=== PATIENT | female | born 1945 | race Caucasian/White ===

== ENCOUNTER 2021-09-15 11:47 | Inpatient (IN) | payer OTHER ==
[~2021-09-15] VITALS: Ht 152.4 cm; Wt 39.5 kg
--- NOTE | ~2021-09-15 | EMS ---
[place] [address] EMS Patient Care Report Name: ANKITA FERMIN Room #: PRE M.R.#: [id number] Admission: Attend Phys: Discharge: Date of : 45 Report #: [id number] THIS REPORT FOR: //name// Report Transmitted: 09/15/2021 11:59 EMS Care Summary [place], [place]/[facility] Incident [id number] @ 09/15/2021 11:08 Incident Location [facility] [address] [place] [address] Patient ANKITA ESCOBAR Female, 76 Years 1945 Patient Address [address] [place] [address] Patient History Arthritis, Patient Allergies No known allergies, Patient Medications Tylenol, Chief Complaint UNABLE TO GET UP OR WALK ON HER OWN Disposition Transported No Lights/[place] Dispatch Reason Sick Person Transported To [facility] Narrative UPON ARRIVAL PT SUPINE ON COUCH CONSCIOUS AND ALERT. ABOUT 5-6 DAYS AGO PT HAD A FALL IN THE BATHROOM AND HAS BEEN UNABLE TO GET OUT OF BED OR WALK AROUND. PT NORMALLY ABLE TO GET UP ON HER OWN AND WALK WITH A CANE. PT HAS SEVERE ARTHRITIS IN HER BACK AND STATES IT DOESN'T HURT ANY MORE THAN NORMAL. PT HAS [address] [address] EMS Patient Care Report Name: ANKITA FERMIN Room #: PRE Lorena#: [id number] Admission: Attend Phys: Discharge: Date of : 45 Report #: [id number] ALSO NOT BE EATING/ DRINKING MUCH DUE TO ACID REFLUX AND INABILITY TO CARE FOR HERSELF. PT DENIES ANY SOB, SPO2 88% PT ALSO TACHYCARDIC. UNABLE TO GET A CARDIAC READING ON THE MONITOR. PT LIFTED TO COT. PT TRANSPORTED TO [facility]. Initial Vitals @11:31P: 146,CO: 1,SpO2: 82, @11:27P: 150,CO: 0,SpO2: 88, @11:40P: 147,R: 16,BP: 102/71,GCS: 15,CO: 4,SpO2: 96,Revised Trauma: 12, @11:23P: 153,R: 16,BP: 106/75,Pain: 5/10,GCS: 15,Glucose: 107,SpO2: 88,Revised Trauma: 12, Assessments @11:15MENTAL:Person Oriented,Event Oriented,Time Oriented,Place Oriented,SKIN:HEENT:Head/Face: No Abnormalities,LUNG SOUNDS:General: No Abnormalities,ABDOMEN:General: No Abnormalities,PELVIS//GI:No Abnormalities,EXTREMITIES:Left Arm: No Abnormalities,Right Arm: No Abnormalities,Left Leg: No Abnormalities,Right Leg: No Abnormalities,PULSE:Radial: 2+ Normal,NEURO:No Abnormalities, Impression Back Pain Procedures @11:30 Oxygen FlowRate: 2 Device: Nasal Cannula (NC) Response: ImprovedSucceeded @11:25 3-Lead ECG Response: UnchangedFailed @11:15 ALS Assessment Response: UnchangedSucceeded Timeline 10:57,Call Received 10:57,Dispatch Notified 11:08,Dispatched 11:09,En Route 11:13,On Scene 11:14,At Patient 11:15,ALS Assessment,Response: UnchangedSucceeded, 11:23,BP: 106/75 M,PULSE: 153,RR: 16 R,SPO2: 88 Ox,ETCO2: ,B,PAIN: 5,GCS: 15, 11:25,3-Lead ECG,Response: UnchangedFailed, 11:27,BP: / M,PULSE: 150,RR: R,SPO2: 88 Ox,ETCO2: ,BG: ,PAIN: ,GCS: , 11:27,Depart Scene 11:30,Oxygen FlowRate: 2 Device: Nasal Cannula (NC) Response: ImprovedSucceeded, 11:31,BP: / M,PULSE: 146,RR: R,SPO2: 82 Ox,ETCO2: ,BG: ,PAIN: ,GCS: , 11:40,BP: 102/71 M,PULSE: 147,RR: 16 R,SPO2: 96 Ox,ETCO2: ,BG: ,PAIN: ,GCS: 15, 11:43,At Destination [facility] [address] [place] [address] EMS Patient Care Report Name: ANKITA FERMIN Room #: PRE M.R.#: [id number] Admission: Attend Phys: Discharge: Date of : 45 Report #: [id number] 12:05,Call Closed Disclaimer [email or web address] Copyright 2021 [employer] This EMS Care Summary contains data elements from the applicable legal record (which may be displayed differently). It is designed to provide pertinent information for the following purposes: continuity of care, clinical quality, and state data reporting. The complete legal record is available to ED staff and administrators of the receiving hospital in [email or web address] Patient Tracker. All data is provided "as is."
[2021-09-15 11:49] VITALS: BP 126/83
[2021-09-15 12:56] LABS: ABSOLUTE NEUTROPHILS 3.2 thou/uL (1.4-8.2); BASOPHILS 0.2 % (0.0-2.0); EOSINOPHILS 0.1 % (0.0-3.0); HEMATOCRIT 40.3 % (37.0-47.0); HEMOGLOBIN 12.7 gm/dL (12.0-15.0); LYMPHOCYTES 20.2 % (24.0-44.0); MCH 32.5 pg (26.0-34.0); MCHC 31.6 g/dL (28.0-37.0); MCV 102.9 fL (80.0-100.0); MONOCYTES 2.1 % (1.0-8.0); PLATELET COUNT 218 thou/uL (150-400); POLYS 77.4 % (36.0-66.0); RBC 3.92 mil/uL (4.20-5.00); RDW 15.1 % (10.5-14.5); WBC 4.9 thou/uL (4.0-11.0)
[2021-09-15 12:57] LABS: URINE BLOOD NEGATIVE (Negative); URINE CLARITY CLEAR; URINE GLUCOSE-RANDOM* NEGATIVE (Negative); URINE KETONES NEGATIVE (Negative); URINE LEUKOCYTES-REFLEX NEGATIVE (Negative); URINE NITRITE-REFLEX NEGATIVE (Negative); URINE PROTEIN (DIPSTICK) TRACE (Negative); URINE SPECIFIC GRAVITY >= 1.030 (1.005-1.035); URINE UROBILINOGEN 0.2 E.U./dl (0.2-1.0)
[2021-09-15 12:59] LABS: ICTOTEST (BILI CONFIRMATORY) Negative (Negative); URINE BILIRUBIN NEGATIVE (Negative); URINE COLOR YELLOW
[2021-09-15 13:18] LABS: CREATININE 1.3 mg/dL (0.6-1.0); TOTAL BILIRUBIN 0.6 mg/dL (0.2-1.0); TOTAL PROTEIN 7.8 g/dL (6.4-8.2)
[2021-09-15 13:22] LABS: POTASSIUM 5.5 mmol/L (3.5-5.1)
[2021-09-15 13:23] LABS: CALCIUM 12.5 mg/dL (8.5-10.1)
--- NOTE | 2021-09-15 16:30 | NUR ---
Pt admitted to the ER from home with hypercalcemia and falls. Workup in progress for likely new ca dx with metastatic disease. Consult rec'd to talk with her son/dpoa Roberto who lives in [place] regarding possible options for home with hospice care. [employer] Instructor spoke with Roberto. He is working on trying to get to [place] early next week and also see if his aunt can come up from [facility] to stay with the pt. Hospice options /medicare hospice benefits discussed. Agency preference denied. Referral faxed and called to [facility]. Their liason will be in touch with pt's son and able to come visit with the pt tomorrow at bedside to see if they wish to move forward with setting up hospice services at home. The hospice liason is Radha and she can be reached via cell [phone].
--- NOTE | 2021-09-15 17:16 | NUR ---
THIS RN HAS SPOKE WITH PTS SON REGARDING PLANS FOR PT AND POSSIBLE HOSPICE REFERRAL. PT SON NAME IS CHRISTA, WHO LIVES IN [facility], REPORTS THAT HIS MOTHER HAS BEEN HAVING MANY FALLS RECENTLY. SON HAS BEEN INFORMED OF PT CT SCAN RESULTS WITH PT PERMISSION. ADMITTING PHYSICIAN PAGED TO DISCUSS RESULTS WITH PT IT IS UNCLEAR IF PT UNDERSTANDS THE RESULTS.
[2021-09-16 03:11] VITALS: BP 110/77
[2021-09-16 05:01] LABS: ABSOLUTE NEUTROPHILS 4.9 thou/uL (1.4-8.2); BASOPHILS 0.1 % (0.0-2.0); EOSINOPHILS 0.1 % (0.0-3.0); HEMATOCRIT 32.5 % (37.0-47.0); HEMOGLOBIN 10.2 gm/dL (12.0-15.0); LYMPHOCYTES 12.9 % (24.0-44.0); MCH 32.5 pg (26.0-34.0); MCHC 31.5 g/dL (28.0-37.0); MCV 103.2 fL (80.0-100.0); MONOCYTES 1.4 % (1.0-8.0); PLATELET COUNT 151 thou/uL (150-400); POLYS 85.5 % (36.0-66.0); RBC 3.15 mil/uL (4.20-5.00); RDW 15.1 % (10.5-14.5); WBC 5.8 thou/uL (4.0-11.0)
[2021-09-16 05:17] LABS: CALCIUM 10.6 mg/dL (8.5-10.1); CREATININE 1.3 mg/dL (0.6-1.0); MAGNESIUM 1.8 mg/dL (1.8-2.4)
[2021-09-16 10:17] VITALS: BP 128/87
--- NOTE | 2021-09-16 10:54 | EKG ---
[address] [address] ELECTROCARDIOGRAM REPORT Name: ANKITA FERMIN Room #: 170-3 ADM IN M.R.#: [id number] Admission: 09/15/21 Attend Phys: Carlos Eduardo Ulloa MD Discharge: Date of : 45 Report #: [id number] Test Date: 2021-09-15 Test Time: 12:45:57 Pat Name: ANKITA FERMIN Department: Room: 170 Gender: F Flat Sorter Processor: mkiie car : 1945 Requested By: Smiley Zhang Order Number: [id number] MD: Payam Adam Measurements Intervals Colbert Rate: 140 P: 55 CA: 140 QRS: -46 QRSD: 67 T: 30 QT: 290 QTc: 443 Interpretive Statements Sinus tachycardia Left anterior fascicular block No previous ECG available for comparison Electronically Signed On 09-16-2021 10:54:09 FLEECE TIER by Payam Adam [email or web address] <ELECTRONICALLY SIGNED> By: Payam Adam MD 09/16/21 1054 1245 1245 Payam Adam MD /DEVIN
[2021-09-16 16:02] VITALS: BP 146/98
[2021-09-16 16:48] VITALS: BP 152/93
--- NOTE | 2021-09-16 18:52 | NUR ---
ASSUMED CARE OF PT AROUND 1500. PT WAS VERY CONFUSED. ALERT TO SELF ONLY. VITAL SIGNS WNL. STARTED SECOND IV ON PT FOR ANTIBIOTICS. CURRENTLY HAS FLUIDS AND PPN RUNNING ON RIGHT ARM. PT DID NOT COME WITH ANY BELONGINGS. PT WAS CONTINENT OF URINE AND WAS ABLE TO ROLL ON AND OFF OF BEDPAN. SKIN LOOKS GOOD. HAD DIFFICULTY SWALLOWING THIN LIQUIDS. DR FLANAGAN NOTIFIED. SPEECH EVAL ENTERED. WILL CONTINUE TO MONITOR PT FREQUENTLY OVERNIGHT.
[2021-09-16 19:54] VITALS: BP 124/80
--- NOTE | 2021-09-17 06:38 | NUR ---
ASSUMED CARE OF PT AT 1900 REPORT RECIEVED MARIANO ASSESSMENT COMPLETE. PT C/O SLEEPINESS/LETHARGY. PPN AND IVF RUNNING PER MAR. NO C/O PAIN AT THIS TIME. Q2 HOUR REPOSITIONING FOR COMFORT. [address] ALL NEEDS MET HOURLY ROUNDING CONTINUING CALL LIGHT IN REACH
[2021-09-17 08:00] VITALS: BP 130/97
[2021-09-17 08:39] VITALS: BP 130/97
[2021-09-17 16:21] VITALS: BP 148/102
[2021-09-17 20:50] VITALS: BP 135/86
[2021-09-18 08:20] VITALS: BP 149/108
--- NOTE | 2021-09-18 12:18 | NUR ---
Met with patient who appears confused. She does not recall why she is in hospital. She cannot recall her cancer diagnosis. Sp with son. He reports he plans to drive to on saturday from [facility]. Son reports he was supposed to speak with hospice Saturday and that did not happen. he reports plan for patient to [facility] with hospice. He has family, his aunt who lives in [facility] to stay with patient unit he can arrive. Aunt Johnny Fermin [phone]. Called and spoke with [facility] who plans to reach out to son today. [facility] has [facility] phone number. [employer] following
[2021-09-18 15:58] VITALS: BP 143/98
--- NOTE | 2021-09-18 16:59 | NUR ---
Spoke with kailyn Mejia, patients sister in law Johnny Bell [phone] cell. Spoke with Lamin with [facility]. DC plan in am. Johnny and spouse driving from [place] [facility] in am. They will arrive in area approx 12:00 noon. They will retrieve keys to patients home from neighbor. They will be avail for equiptment delivary from hospice. They are aware patient needs 24/7 care and some assistance with transfers. Arranged [facility] van from [facility] for home in a.m. at 1400. Kailyn Mejia to drive in from [facility] on Saturday. he is agreeable to dc plan. Plan to finalize in am. Updated [facility] with clinical and plan. [facility] with onsite eval today but patient did not want to speak her.
--- NOTE | 2021-09-18 19:21 | NUR ---
PATIENT RESTING IN BED COMFORTABLY, ALERT BUT CONFUSED. WILL BE DISCHARGE HOME WITH HOSPICE AROUND 2:00 PM WITH WHEELCHAIR AND VAN. FAMILY OUT OF TOWN WILL BE IN AND SISTER WILL TAKE CARE OF HER AT HOME. CALL LIGHT WITHIN REACH, WILL CONTINOUS MONITORING.
[2021-09-18 20:23] VITALS: BP 148/104
--- NOTE | 2021-09-19 04:12 | NUR ---
ASSUMED PT CARE THIS PM. PT IS ALERT AND ORIENTED X2 WHITH CONFUSION AND FORGETFULNESS. PT IS INCONTINENT B/B. PT IS ON 1L OF O2 VIA NC. MEDS WERE GIVCENPER EMAR ORDERS. PT DID NOT VERBALIZE ANY CONCERNS AND NO VISIBLE SIGN OF DISTRESS WAS NOTED. FALL PRECAUTIONS IN PLACE. WILL CONTINUE TO MONITOR.
[2021-09-19 09:04] VITALS: BP 156/88
--- NOTE | 2021-09-19 10:15 | NUR ---
ASSUMED PT CARE THIS AM. PT HAS IV SITE ON RFA RUNNING PPN @30ML/HR AND NS @75ML/HR. PT IS ON 1L NC O2. GIVEN SCHEDULED MEDICATIONS THIS AM WITHOUT DIFFICULTIES. PER CM PT WILL BE DC AT 1400 VIA WHEELCHAIR VAN TO HOME. WILL CONTINUE TO MONITOR PT. FOLLOW POC.
[2021-09-19] MEDS ORDERED: NORCO5 PO (12:42)
[2021-09-19] MEDS ORDERED: LEVOFLOXACIN250 MG PO (12:42)
[2021-09-19 13:06] VITALS: BP 156/88
--- NOTE | 2021-09-19 14:08 | NUR ---
Verififed with son and hospice all are prepared for dc home today with hospice services. [facility] for van transport to home at 1400. faxed orders to [facility] and rec confirmation they rec. no further needs
== END 2021-09-19 14:55 | disposition hospice, home (50) | DRG 682 ==
LOC: ER 11:47 → 4S 15:14 → EROBS 15:14 → 4S 09-16 16:02
PROVIDERS: Nurse Practitioner; ADMIT Internal Medicine; ATTEND Internal Medicine
DX: N17.9 Acute kidney failure, unspecified (principal); J18.9 Pneumonia, unspecified organism; E43 Unspecified severe protein-calorie malnutrition; J96.01 Acute respiratory failure with hypoxia; R62.7 Adult failure to thrive; E83.51 Hypocalcemia; Z20.822 Contact with and (suspected) exposure to COVID-19; I10 Essential (primary) hypertension; E78.00 Pure hypercholesterolemia, unspecified; E83.52 Hypercalcemia; E78.5 Hyperlipidemia, unspecified; R63.4 Abnormal weight loss; R59.1 Generalized enlarged lymph nodes; E86.0 Dehydration; Z66 Do not resuscitate; Z85.3 Personal history of malignant neoplasm of breast; Z79.899 Other long term (current) drug therapy
CPT/HCPCS: 10195